=== PATIENT | male | born 1950 | race Caucasian/White ===

== ENCOUNTER 2017-10-11 22:59 | Inpatient (IN) ==
[2017-10-11] MEDS ORDERED: 0.9 % Sodium Chloride 1,000 ML IVC ONE (23:51)
[2017-10-12 00:04] LABS: Basophils # 0.1 K/mcL (0.0-0.2); Basophils % 0.2 %; Eosinophils # 0.3 K/mcL (0.0-0.6); Eosinophils % 1.5 %; Hemoglobin 12.9 g/dL (12.9-16.9); Immature Granulocytes % 0.6 % (0-4); Lymphocytes # 4.5 K/mcL (0.6-4.6); Lymphocytes % 20.7 %; Mean Corpuscular HGB Conc 33.9 g/dL (31.6-35.5); Mean Corpuscular Hemoglobin 29.9 pg (28.0-33.3); Mean Corpuscular Volume 88.2 fL (83.0-100.0); Mean Platelet Volume 9.3 fL (9.4-12.4); Monocytes # 1.5 K/mcL (0.0-1.3); Monocytes % 6.7 %; Neutrophils # 15.2 K/mcL (1.6-8.9); Platelet Count 373 K/mcL (140-400); Red Blood Count 4.31 M/mcL (4.19-5.50); Red Cell Distribution Width 14.6 % (11.5-14.5); Segmented Neutrophils % 70.3 %
[2017-10-12 00:15] LABS: BUN/Creatinine Ratio 23 (6-26); Blood Urea Nitrogen 34 mg/dL (8-23); Calcium 9.7 mg/dL (8.6-10.3); Carbon Dioxide 12 mEq/L (23-29); Chloride 106 mEq/L (98-107); Glucose 188 mg/dL (70-105); Osmolality,Calculated 287 (280-300); Potassium 4.5 mEq/L (3.5-5.1); Sodium 132 mEq/L (136-145); Troponin I < 0.03 ng/mL (< 0.04); eGFR For Non-African Americans 47 (> 60)
[2017-10-12] MEDS ORDERED: Ondansetron 4 MG/2 ML VIAL IVP ONE (00:30)
--- NOTE | 2017-10-12 00:51 | Emergency Department Note ---
Disposition Clinical Impression: Altered mental state Qualifiers: Altered mental status type: disorientation Qualified Code(s): R41.0 - Disorientation, unspecified Disposition: Admitted As Inpatient Condition: Good General Adult HPI - General Chief complaint: ED Syncope Stated complaint: syncope Time Seen by Provider: 10/11/17 23:18 Source: patient, family Mode of arrival: ambulatory Limitations: no limitations Nursing Notes Reviewed: Yes Vital Signs Reviewed: Yes - History of Present Illness HPI Narrative: Patient is a 67-year-old male presenting with AMS. Patient has past medical history significant for prostate cancer, diabetes, hypertension and hyperlipidemia. The patient states that just prior to arrival he had an episode that lasted about 30 seconds where he had altered mental status. It was witnessed by family, per family patient was sitting in his chair when all of a sudden he had an episode where he was unresponsive, remained posture while sitting in a chair, eyes remained open, noted that patient began to snore. Patient denies any recollection of the event, does note confusion following, per family he was confused for about 30 minutes, remained able to answer questions however did not seem "himself". Just prior to the episode patient states that he began to be lightheaded, dizzy with nausea. Patient denies any history of syncope, chest pain, shortness of breath, diaphoresis, seizure. For the past week, patient has been diagnosed with hyperkalemia and had been started on Kayexalate medication, states had blood work this am which showed K at 5.9, took double dose of kayexalate. Patient states that just prior to the episode he had taken this. Patient denies any vomiting, blood in stool or urine. He denies any pain during this event or currently. Per family, patient states that he is back to baseline at this point in time. Patient denies history of stroke, TIA or being on anticoagulation. Pain Scale: 0 - Related Data Allergies Allergy/AdvReac Type Severity Reaction Status Date / Time No Known Allergies Allergy Verified 10/11/17 23:12 All systems ED: reviewed and negative except as stated. Review of Systems: As Per HPI Constitutional: Denies: fever, chills ENT ED: Denies: congestion Cardiovascular: Denies: chest pain, palpitations, dyspnea on exertion, syncope Respiratory: Denies: cough, dyspnea, wheezes, hemoptysis Gastrointestinal: Reports: nausea. Denies: abdominal pain, vomiting, diarrhea Genitourinary: Denies: urgency, dysuria Musculoskeletal: Denies: back pain Integumentary: Denies: rash Neurological: Reports: confusion. Denies: headache, weakness, numbness, paresthesias Psychiatric: Denies: anxiety Endocrine: Denies: fatigue Hematological/Lymphatic: Denies: easy bleeding, easy bruising Past Medical History - Past Medical History Attestation: Yes The following information was validated with the patient. Source: patient, obtained from family Medical history: Reports: diabetes, hyperlipidemia, hypertension - Social History Smoking Status: Never smoker Smokeless Tobacco Status: No Alcohol use: Reports: rarely Drug use: Reports: none Physical Exam - General Limitations: no limitations General appearance: alert, in no apparent distress - Head Head exam: atraumatic, normocephalic - Eye Eye exam: Present: normal appearance, PERRL, EOMI. Absent: nystagmus, miosis, mydriasis - ENT ENT exam: normal exam, normal oropharynx, mucous membranes moist - Neck Neck exam: Present: normal inspection - Chest Chest inspection: Present: normal inspection, symmetric chest wall rise - Respiratory Respiratory exam: Present: normal lung sounds bilaterally. Absent: respiratory distress, wheezes - Cardiovascular Cardiovascular exam: Present: regular rate, normal rhythm - Abdominal Exam Abdominal exam: Present: soft, Non-Tender, normal bowel sounds. Absent: tenderness, distention, guarding, rebound, rigidity - Extremities Exam Extremities exam: Present: normal inspection, normal capillary refill. Absent: tenderness, pedal edema, calf tenderness - Expanded Lower Extremity Exam Neurovascular/Tendon exam: Present: normal capillary refill. Absent: pulse deficit, motor deficit, sensory deficit - Neurological Exam Neurological exam: Present: alert, oriented X3, CN II-XII intact - Expanded Neurological Exam Patient oriented to: Present: person, place, time Speech: Present: fluid speech Cranial nerves: EOM function (II, III, IV, ): Normal, facial sensation (V): Normal, facial palsy (VII): Normal, gag reflex (IX): Normal, spinal accessory function (XI): Normal, tongue deviation (XII): Normal Cerebellar function: heel to mathur: Normal Motor strength - LUE: 5/5 Motor strength - RUE: 5/5 Motor strength - LLE: 5/5 Motor strength - RLE: 5/5 Upper motor neuron exam: pronator drift: Absent bilaterally Sensory exam upper extremity: light touch: Normal Sensory exam lower extremity: light touch: Normal Coma Scale Eye Opening: Spontaneous Coma Scale Motor Response: Obeys Commands Coma Scale Verbal Response: Oriented Coma Scale Total: 15 - Psychiatric Psychiatric exam: Present: normal affect, normal mood - Skin Skin exam: Present: warm, dry Course Course Narrative: We will order syncope rule out evaluation with CT head, we will give fluids and Zofran for nausea - Consultations Consultation #1: Spoke with neurology, Dr. Macias, who states that he will consult patient in the morning Time: 01:56 Vital Signs Temperature 98.6 F 10/11/17 23:05 Pulse Rate 72 10/11/17 23:05 Respiratory Rate 18 10/11/17 23:05 Blood Pressure 107/75 10/11/17 23:05 O2 Sat by Pulse Oximetry 95 10/11/17 23:05 Temperature 98.6 F 10/11/17 23:05 Pulse Rate 77 10/12/17 01:12 Respiratory Rate 16 10/12/17 03:10 Blood Pressure 120/70 10/12/17 03:10 O2 Sat by Pulse Oximetry 98 10/12/17 01:12 Oxygen Delivery Oxygen Delivery Room Air Medical Decision Making - MDM Narrative Medical decision making narrative: Patient is a 67-year-old male presenting with altered mental status. Evaluation in the emergency department revealed leukocytosis at 21.6 with elevated neutrophil at 15.1, creatinine is elevated at 1.50. Carbon dioxide low at 12, potassium stable at 4.5, CT of the head is unremarkable for acute intracranial process and chest x-ray is negative for acute cardiac or pulmonary process. EKG is negative for acute ischemic changes, troponin is within normal limits. Patient has remained stable while in the emergency department, normal vital signs. Upon reevaluation, patient states that he feels back to baseline. At this point in time, patient presentation suggestive of seizure activity versus syncopal episode, would like to consult neurology for further diagnostics as well as further recommendations, would like neurology to see patient in the morning for further evaluation. Had an in-depth conversation with the patient regarding recommendation for admission for observation of possible seizure activity. Patient is in agreement and at this time will call hospitalist for further admission and evaluation. Spoke with neurology and states that they will consult the patient tomorrow morning. Discussed the patient with hospitalist, at 225 and they accept patient at this point in time. - Medical Records Medical records reviewed: Yes I reviewed the patient's medical records. - Lab Data Lab results reviewed: Yes I reviewed the patient's lab results. Result diagrams: 10/11/17 23:17 10/11/17 23:17 Lab Results 10/11/17 10/11/17 Range/Units 23:17 23:17 WBC 21.6 H (4.3-11.1) K/mcL RBC 4.31 (4.19-5.50) M/mcL Hgb 12.9 (12.9-16.9) g/dL Hct 38.0 (37.5-50.1) % MCV 88.2 (83.0-100.0) fL MCH 29.9 (28.0-33.3) pg MCHC 33.9 (31.6-35.5) g/dL RDW 14.6 H (11.5-14.5) % Plt Count 373 (140-400) K/mcL MPV 9.3 L (9.4-12.4) fL Immature Gran % 0.6 (0-4) % Seg Neutrophils % 70.3 % Lymphocytes % 20.7 % Monocytes % 6.7 % Eosinophils % 1.5 % Basophils % 0.2 % Neutrophils # 15.2 H (1.6-8.9) K/mcL Lymphocytes # 4.5 (0.6-4.6) K/mcL Monocytes # 1.5 H (0.0-1.3) K/mcL Eosinophils # 0.3 (0.0-0.6) K/mcL Basophils # 0.1 (0.0-0.2) K/mcL Sodium 132 L (136-145) mEq/L Potassium 4.5 (3.5-5.1) mEq/L Chloride 106 (98-107) mEq/L Carbon Dioxide 12 L (23-29) mEq/L BUN 34 H (8-23) mg/dL Creatinine 1.50 H (0.70-1.30) mg/dL Est GFR ( Amer) 57 L (> 60) Est GFR (Non-Af Amer) 47 L (> 60) BUN/Creatinine Ratio 23 (6-26) Glucose 188 H (70-105) mg/dL Calculated Osmolality 287 (280-300) Calcium 9.7 (8.6-10.3) mg/dL Troponin I < 0.03 (< 0.04) ng/mL - Radiology Data Radiology results reviewed: Yes I reviewed the patient's radiology results. Chest X-Ray 10/12/17 00:01 IMPRESSION: Negative portable chest. D/ / Joao Albright MD / Joao Albright MD Interpreting Provider: Joao Albright MD Head CT 10/12/17 00:08 IMPRESSION: No acute intracranial abnormality. D/ / Joao Albright MD / Joao Albright MD Interpreting Provider: Joao Albright MD - EKG Data EKG #1 EKG attestation: Yes I reviewed and interpreted this EKG. EKG results narrative: EKG performed at 2309, ventricular rate of 69, regular rhythm, normal axis, no evidence of hypertrophy, [place] interval 155, QRS at 85, QT at 380, QTC 408, no evidence of ST or T-wave changes, no acute ischemic changes. When compared to previous EKG there are: previous EKG unavailable S.B.A.RChristine - S.[email or web address].Edvin Situation: Demographics, MOA Background: Presenting Complaint, Relevant PMH, Meds, & Allergies Assessment: Vital Signs, Course and respsone to treatment, Exam Concerns, Patient/Family Expectation, Pertinant Lab Results, Outstanding Labs Recommendation: Barrier(s) to disposition, Recommendation based on pending studies, treatments, or consults S.B.A.RChristine Report Given to: hospitatlist Roberto Repor Time: 02:29 (accepted)
[2017-10-12] MEDS ORDERED: Naloxone 0.4 MG/ML INJ IVP PRN ×2 (03:00→05:26)
[2017-10-12] MEDS ORDERED: *HR* LORazepam 2 MG/ML VIAL IVP PRN (03:03)
[2017-10-12] MEDS ORDERED: D5% in Water 1,000 ML IVC PRN (03:04)
[2017-10-12] MEDS ORDERED: Dextrose Gel 15 GM/37.5 ML TUBE PO PRN ×2 (03:04)
[2017-10-12] MEDS ORDERED: *HR* Dextrose 50 % in Water (Syg) 50 ML SYRINGE IVP PRN (03:04)
--- NOTE | 2017-10-12 03:09 | Internal Med History&Physical ---
Addendum entered and electronically signed by Sergio Adler DO 03:19: Additional A/P hx of CKD3: reports baseline GFR is 47. BMP shows scr of 1.5 with GFR 47. Not SALMA Leukocytosis: denies fever, chills, dysuria, cough. cxr negative. will obtain U/ A. May be 2nd to stress reaction from his seizure like episode. Anion gap acidosis: patient has a gap of 14. Bicarb is 12. Glucose 188. will order lactic acid. repeat BMP in 6 hours if not resolved may order additional testing. Original Note: <Sergio Adler - Last Filed: 10/12/17 03:06> Date of Encounter: 10/12/17 Time of Encounter: 03:06 Internal Medicine - H&P: HPI Chief complaint: Altered mental status Admitted From: Home Plans for Post Hospital Care: Home History of present illness: Mr. Desai is a 67 year old male presents with chief complaint of altered mental status. Patient is visiting from [place] and receives his medical care there. Patient was eating dinner at the dining table at 10 PM when he had loss of consciousness. According to patient family saw him sitting in the chair staring for at least 30 seconds. Afterwards patient reports he heard some noises and likely regain consciousness. He does not remember any of this. He reports he was dizzy and lightheaded afterwards. He reports he has never had this before. Before the episode he had taken a Kayexalate which was prescribed to him due to hyperkalemia. He denied headache, blurry vision, changes in hearing, difficulty swallowing, tongue biting, loss of bowels, bladder function , numbness, tingling, weakness on one side, slurred speech, palpitations, chest pain, shortness of breath, cough, fever, chills, abdominal pain, nausea, vomiting, diarrhea, lower extremity edema. Patient was recently diagnosed with prostate cancer and underwent bone scan last week as well as CT of the chest and abdomen for staging. In the ER CT head was negative. Chest x-ray was negative. EKG was sinus rhythm with no ST-T wave changes. He denies history of head trauma, stroke. Past Med Surg Social Fam HX - Past Medical History Medical history: diabetes, hyperlipidemia, hypertension Additional medical history: Prostate cancer, CK D3 - Past Surgical History Surgical History: no surgical history - Social History Smoking Status: Never smoker Smokeless Tobacco Status: No Alcohol use: rarely Drug use: none Occupational status: retired Current living situation: Home Activity Level: Independent ambulation Recent Out of Country Travel Within the Last 8 Weeks: No Exposure or Possible Exposure to Illness During Travel: No - Family History Father Hx Family Cancer: Yes (Prostate cancer) Internal Medicine - H&P: Meds 3 Allergy/AdvReac Type Severity Reaction Status Date / Time No Known Allergies Allergy Verified 10/11/17 23:12 All Systems PM: A 10-system review of systems was performed and is negative for pertinent findings except as documented above in the HPI. Review of systems: As per history of present illness - Constitutional Vitals: Temp Pulse Resp BP Pulse Ox 98.6 F 77 18 123/71 98 10/11/17 23:05 10/12/17 01:12 10/12/17 01:12 10/12/17 01:12 10/12/17 01:12 Exam: General: Pleasant, anxious male HEENT: Head atraumatic, normocephalic, EOMI, PERRL, neck nontender to palpation , absent lymphadenopathy, Moist Mucous Membranes, no evidence of tongue biting Heart: Regular rate and rhythm with no murmur Lungs: Clear to auscultation bilaterally Abdomen: Soft nontender, nondistended positive bowel sounds Skin: warm and dry, absent rash Extremities: Absent pedal edema, Neuro: Cranial nerves II through XII intact, UE and LE sensation equal bilaterally, UE and LEstrength 5/5, alert oriented 3, Heel to mathur intact, finger to nose intact, Gait intact, Vascular: Pedal and radial pulses 2 out of 4 Internal Med - H&P Results - Labs CBC & Chem 7: 10/11/17 23:17 10/11/17 23:17 - Assessment and plan (1) Altered mental state Current Visit: Yes Status: Acute Assessment and plan: 66-year-old male presented with chief complaint of altered mental status Patient was eating dinner when he had 30 seconds staring spell which she does not remember and thereafter recovered his consciousness quickly CT head was negative Since the episode he denies confusion, lightheadedness, dizziness, additional syncopal episodes. He denies history of seizure, trauma. Neurology was consulted by ED and will see patient tomorrow Ordered EEG, prolactin Patient was recently diagnosed with prostate cancer and is undergoing staging. May consider MRI of the brain with possible metastasis. Qualifiers: Altered mental status type: disorientation Qualified Code(s): R41.0 - Disorientation, unspecified (2) History of hyperlipidemia Current Visit: Yes Status: Chronic Assessment and plan: Patient has history of hyperlipidemia Continue home medications. (3) Prostate cancer Current Visit: Yes Status: Chronic Assessment and plan: Stated above Patient recently diagnosed with prostate cancer He is very nervous as he does not know the results of his bone scan, CT chest and abdomen/pelvis (4) Hx of essential hypertension Current Visit: Yes Status: Acute Assessment and plan: Controlled Continue home medications. (5) DVT prophylaxis Current Visit: Yes Status: Acute Assessment and plan: ambulate tid - Time Spent With Patient Total time spent is greater than 50% in coordination of care (as documented) at patient's floor/unit and/or counseling patient: <JesustyreeArpita piña - Last Filed: 10/12/17 07:46> Date of Encounter: 10/12/17 Internal Medicine - H&P: HPI History of present illness: Mr. Desai is a 67 year old male Past Med Surg Social Fam HX - Family History Father Hx Family Cardiac Disorders: Yes (HTN) Hx Family Respiratory Disorders: No Hx Family Cancer: Yes (Prostate cancer) Hx Family GI Disorders: No Hx Family Genitourinary Disorders: No Hx Family Endocrine Disorder: Yes (DM) Hx Family Musculoskeletal Disorders: No Hx Family Neuromuscular Disorders: No Hx Family Neurologic Disorders: No Hx Family HEENT Disorders: No Hx Family Autoimmune Disorders: No Hx Family Reproductive Disorders: No Hx Family Psychosocial Disorders: No Hx Family Medical Disorders: No Mother Hx Family Cardiac Disorders: Yes (HTN) Hx Family Respiratory Disorders: No Hx Family Cancer: No Hx Family GI Disorders: No Hx Family Genitourinary Disorders: No Hx Family Endocrine Disorder: Yes (DM) Hx Family Musculoskeletal Disorders: No Hx Family Neuromuscular Disorders: No Hx Family Neurologic Disorders: No Hx Family HEENT Disorders: No Hx Family Autoimmune Disorders: No Hx Family Reproductive Disorders: No Hx Family Psychosocial Disorders: No Hx Family Medical Disorders: No All Systems PM: A 10-system review of systems was performed and is negative for pertinent findings except as documented above in the HPI. - Constitutional Vitals: Temp Pulse Resp BP Pulse Ox 98.4 F 86 16 124/73 96 10/12/17 07:33 10/12/17 07:33 10/12/17 07:33 10/12/17 07:33 10/12/17 07:33 Internal Med - H&P Results - Labs CBC & Chem 7: 10/11/17 23:17 10/11/17 23:17 - Assessment and plan (1) Altered mental state Current Visit: Yes Status: Acute Qualifiers: Altered mental status type: disorientation Qualified Code(s): R41.0 - Disorientation, unspecified (2) History of hyperlipidemia Current Visit: Yes Status: Chronic (3) Prostate cancer Current Visit: Yes Status: Chronic (4) Hx of essential hypertension Current Visit: Yes Status: Acute (5) DVT prophylaxis Current Visit: Yes Status: Acute - Time Spent With Patient Total time spent is greater than 50% in coordination of care (as documented) at patient's floor/unit and/or counseling patient: - Attending Attestation Patient seen and examined. Chart reviewed. Agree with assessment and plan. Syncope versus seizure episode. History more consistent with a vasovagal syncope however given lactic acid and patient's history of a seven-hour car ride in the setting of possible prostate cancer, we will obtain d-dimer to rule out PE. Well's score of 1. Consider cardiology and neurology consult.
[2017-10-12] MEDS: *HR* Heparin 5,000 UNIT/ML VIAL SQ SCH ×3 (06:05→23:34)
--- NOTE | 2017-10-12 06:43 | Emergency Department Note ---
Disposition Clinical Impression: Altered mental state Qualifiers: Altered mental status type: disorientation Qualified Code(s): R41.0 - Disorientation, unspecified Disposition: Admitted As Inpatient Condition: Good General Adult HPI - General Chief complaint: ED Syncope Stated complaint: syncope Time Seen by Provider: 10/11/17 23:18 Source: patient, family Mode of arrival: ambulatory Limitations: no limitations Nursing Notes Reviewed: Yes Vital Signs Reviewed: Yes - History of Present Illness Pain Scale: 0 - Related Data Allergies Allergy/AdvReac Type Severity Reaction Status Date / Time No Known Allergies Allergy Verified 10/11/17 23:12 Constitutional: Denies: fever, chills ENT ED: Denies: congestion Cardiovascular: Denies: chest pain, palpitations, dyspnea on exertion, syncope Respiratory: Denies: cough, dyspnea, wheezes, hemoptysis Gastrointestinal: Reports: nausea. Denies: abdominal pain, vomiting, diarrhea Genitourinary: Denies: urgency, dysuria Musculoskeletal: Denies: back pain Integumentary: Denies: rash Neurological: Reports: confusion. Denies: headache, weakness, numbness, paresthesias Psychiatric: Denies: anxiety Endocrine: Denies: fatigue Hematological/Lymphatic: Denies: easy bleeding, easy bruising Past Medical History - Past Medical History Medical history: Reports: diabetes, hyperlipidemia, hypertension Surgical history: Reports: no surgical history - Social History Smoking Status: Never smoker Smokeless Tobacco Status: No Alcohol use: Reports: rarely Drug use: Reports: none Physical Exam - General Limitations: no limitations General appearance: alert, in no apparent distress Course Vital Signs Temperature 98.6 F 10/11/17 23:05 Pulse Rate 72 10/11/17 23:05 Respiratory Rate 18 10/11/17 23:05 Blood Pressure 107/75 10/11/17 23:05 O2 Sat by Pulse Oximetry 95 10/11/17 23:05 Temperature 98.6 F 10/11/17 23:05 Pulse Rate 77 10/12/17 01:12 Respiratory Rate 16 10/12/17 03:10 Blood Pressure 120/70 10/12/17 03:10 O2 Sat by Pulse Oximetry 98 10/12/17 01:12 Oxygen Delivery Oxygen Delivery Room Air Medical Decision Making - Lab Data Lab results reviewed: Yes I reviewed the patient's lab results. Result diagrams: 10/11/17 23:17 10/11/17 23:17 Lab Results 10/11/17 10/11/17 Range/Units 23:17 23:17 WBC 21.6 H (4.3-11.1) K/mcL RBC 4.31 (4.19-5.50) M/mcL Hgb 12.9 (12.9-16.9) g/dL Hct 38.0 (37.5-50.1) % MCV 88.2 (83.0-100.0) fL MCH 29.9 (28.0-33.3) pg MCHC 33.9 (31.6-35.5) g/dL RDW 14.6 H (11.5-14.5) % Plt Count 373 (140-400) K/mcL MPV 9.3 L (9.4-12.4) fL Immature Gran % 0.6 (0-4) % Seg Neutrophils % 70.3 % Lymphocytes % 20.7 % Monocytes % 6.7 % Eosinophils % 1.5 % Basophils % 0.2 % Neutrophils # 15.2 H (1.6-8.9) K/mcL Lymphocytes # 4.5 (0.6-4.6) K/mcL Monocytes # 1.5 H (0.0-1.3) K/mcL Eosinophils # 0.3 (0.0-0.6) K/mcL Basophils # 0.1 (0.0-0.2) K/mcL Sodium 132 L (136-145) mEq/L Potassium 4.5 (3.5-5.1) mEq/L Chloride 106 (98-107) mEq/L Carbon Dioxide 12 L (23-29) mEq/L BUN 34 H (8-23) mg/dL Creatinine 1.50 H (0.70-1.30) mg/dL Est GFR ( Amer) 57 L (> 60) Est GFR (Non-Af Amer) 47 L (> 60) BUN/Creatinine Ratio 23 (6-26) Glucose 188 H (70-105) mg/dL Calculated Osmolality 287 (280-300) Calcium 9.7 (8.6-10.3) mg/dL Troponin I < 0.03 (< 0.04) ng/mL - Radiology Data Radiology results reviewed: Yes I reviewed the patient's radiology results. Chest X-Ray 10/12/17 00:01 IMPRESSION: Negative portable chest. D/ / Joao Albright MD / Joao Albrihgt MD Interpreting Provider: Joao Albright MD Head CT 10/12/17 00:08 IMPRESSION: No acute intracranial abnormality. D/ / Joao Albright MD / Joao Albright MD Interpreting Provider: Joao Albright MD Attestation Statement - Attestation Attestation: I, Kg Pavon MD, personally evaluated this patient and discussed their management with the resident physician. I reviewed the resident's note and agree with the documented findings, medical decision making, and plan of care. 67-year-old male presents to the emergency department with a complaint of having an episode of unresponsiveness shortly prior to arrival. Patient had just eaten and was sitting at the table when family reports that he suddenly slumped his head forward and developed some snoring respirations. They report that his eyes were opening during this episode that he would not respond to them at all. He became very pale. No cyanosis. No diaphoresis. No prior history of similar episodes. This episode lasted about 30 seconds and then patient began to wake up. Initially he was confused and disoriented and slow to respond. This gradually improved over several minutes. Here in the emergency Department patient is back to his baseline. He states all he remembers is that he became dizzy and lightheaded while sitting at the table and then he remembers waking up. No chest pain or palpitations with the episode. Patient has a history of chronic hyperkalemia and states his potassium usually runs 5.4-5.8. Earlier this week it was up about 6 and he was treated with Kayexalate. He followed up yesterday morning and it was still 5.970 was given Kayexalate to take for 3 days. He had taken the Kayexalate this shortly prior to this episode. On examination patient is a well-developed well-nourished well-appearing male in no acute distress. He is alert and oriented 3. There is no cyanosis or diaphoresis. No gross focal neurological deficits. Breath sounds clear and equal bilaterally. Heart regular rate and rhythm. Abdomen soft and nontender with normal bowel sounds. Labs, imaging, and EKG reviewed. The neurologist orthodontic laboratory technician, Dr. Mcdaniel, was consulted and will consult on the patient in the hospital in the morning. The hospitalist, Dr. Acosta, was consulted and accepted admission of the patient.
[2017-10-12] MEDS ORDERED: Insulin LISPRO 300 UNITS/3 ML VIAL SQ SCH ×2 (07:30→21:00)
[2017-10-12] MEDS ORDERED: *HR* Metformin 500 MG TABLET PO SCH (08:00)
[2017-10-12 08:01] LABS: Bilirubin,Urine Negative (Negative); Blood,Urine Trace (Negative); Clarity,Urine Clear (Clear); Color,Urine Yellow (Yellow); Glucose,Urine (UA) Normal (Normal); Ketones,Urine Negative (Negative); Leukocyte Esterase,Urine Negative (Negative); Nitrite,Urine Negative (Negative); PH,Urine 5.5 pH Units (5.0-8.0); Protein,Urine Negative (Neg-Trace); Specific Gravity,Urine 1.012 (1.010-1.025); Urobilinogen,Urine Normal (Normal)
[2017-10-12 08:04] LABS: Bacteria,Urine None Seen per hpf (None-Few); Hyaline Casts,Urine None Seen per lpf (None-Few); Squamous Epithelial Cell,Urine None Seen per lpf (None-Few); WBC,Urine 0-3 per hpf (0-3)
--- NOTE | 2017-10-12 08:44 | Internal Med Progress Note ---
Hospitalist Progress Note - Encounter Date of Encounter: 10/12/17 - Exam Vitals: Temp Pulse Resp BP Pulse Ox 98.4 F 86 16 124/73 96 10/12/17 07:33 10/12/17 07:33 10/12/17 07:33 10/12/17 07:33 10/12/17 07:33 - Time Spent with Patient Total time spent is greater than 50% in coordination of care (as documented) at patient's floor/unit and/or counseling patient: Internal Medicine: Result - Labs CBC & Chem 7: 10/11/17 23:17 10/11/17 23:17 Labs: Urine 10/12/17 Range/Units 06:35 Urine Color Yellow (Yellow) Urine Clarity Clear (Clear) Urine pH 5.5 (5.0-8.0) pH Units Ur Specific [place] 1.012 (1.010-1.025) Urine Protein Negative (Neg-Trace) mg/dL Urine Glucose (UA) Normal (Normal) mg/dL - ABG Interpretation ABG results: PT/INR, D-dimer D-Dimer 555 ng/mLFEU (0-500) H 10/12/17 05:19 Consult Discharge Plan - Plan Referrals: NONE,PCP [Primary Care Provider] -
[2017-10-12 09:45] LABS: Amphetamine Screen,Urine Negative ng/mL (Cutoff=1000); Barbiturate Screen,Urine Negative ng/mL (Cutoff=200); Benzodiazepines Screen,Urine Negative ng/mL (Cutoff=200); Cannabinoid Screen,Urine Negative ng/mL (Cutoff = 50); Cocaine Screen,Urine Negative ng/mL (Cutoff= 300); Opiate Screen,Urine Negative ng/mL (Cutoff=300); Phencyclidine Screen,Urine Negative ng/mL (Cutoff=25)
--- NOTE | 2017-10-12 11:26 | Cardiology Consult Note ---
Date of Encounter: 10/12/17 Time of Encounter: 09:40 Assessment and Plan (1) Syncope Current Visit: Yes Status: Acute Unclear etiology. Patient reports syncopal episode yesterday evening while sitting at dinner table. Family described as "staring off, snoring" Had recently taken kayexalate for hyperkalemia--K stable upon presentation. Recent dx of prostate CA. Head CT negative for acute findings. Consider Neurology consult. Telemetry reviewed, no concerning findings noted. No AVB, arrhythmia. Avg HR=84 SR. Check orthostatics. Echocardiogram, carotid pending. If no significant abnormalities noted, Cardiology will sign-off. Qualifiers: Syncope type: unspecified Qualified Code(s): R55 - Syncope and collapse Discussion w patient/family: The assessment and plan as outlined above was discussed with the patient and/or family members who expressed understanding and agreement. All questions were answered. Thank you for involving us in the care of your patient. Please call with any questions. The patient will be discussed and reviewed with Dr. Parra; changes to be made accordingly. History of Present Illness Consult date: 10/12/17 Requesting physician: Sergio Adler Consult reason: Syncope Chief complaint: Syncope History of present illness: Mr. Desai is a 67 year old male with PMHx significant of HTN, HLD, DMII, CKD-3 , and recent dx of prostate cancer who presented to the ED with complaints of syncope episode yesterday evening while sitting at the dinner table with family. Reports he resides in [place] and traveled here yesterday to visit his son; while eating a late dinner, he suddenly felt dizzy. He reports he then passed out. Family described patient as "staring off and snoring." Event lasted nearly 30 seconds. No prior history. Reports was in normal state of health up until event. He reports shortly before episode he had taken Kayexalate for hyperkalemia under direction of physician. Reports potassium has been high on and off this week, had taken 1 dose of kayexalate earlier this week. Denies chest pain/discomfort. No prior CV testing or work-up. Denies hx of CV disease. Past Med Surg Social Fam HX - Past Medical History Attestation: Yes The following information was validated with the patient. Source: patient Medical history: diabetes, hyperlipidemia, hypertension, renal disease Additional medical history: Prostate cancer, CK D3 - Past Surgical History Surgical History: no surgical history - Social History Smoking Status: Never smoker Smokeless Tobacco Status: No Alcohol use: rarely Drug use: none - Family History Father Hx Family Cardiac Disorders: Yes (HTN) Hx Family Respiratory Disorders: No Hx Family Cancer: Yes (Prostate cancer) Hx Family GI Disorders: No Hx Family Genitourinary Disorders: No Hx Family Endocrine Disorder: Yes (DM) Hx Family Musculoskeletal Disorders: No Hx Family Neuromuscular Disorders: No Hx Family Neurologic Disorders: No Hx Family HEENT Disorders: No Hx Family Autoimmune Disorders: No Hx Family Reproductive Disorders: No Hx Family Psychosocial Disorders: No Hx Family Medical Disorders: No Mother Hx Family Cardiac Disorders: Yes (HTN) Hx Family Respiratory Disorders: No Hx Family Cancer: No Hx Family GI Disorders: No Hx Family Genitourinary Disorders: No Hx Family Endocrine Disorder: Yes (DM) Hx Family Musculoskeletal Disorders: No Hx Family Neuromuscular Disorders: No Hx Family Neurologic Disorders: No Hx Family HEENT Disorders: No Hx Family Autoimmune Disorders: No Hx Family Reproductive Disorders: No Hx Family Psychosocial Disorders: No Hx Family Medical Disorders: No Medications and Allergies Atorvastatin [Lipitor] 40 mg PO HS 10/12/17 [History] Lisinopril [Zestril] 40 mg PO DAILY 10/12/17 [History] Metformin HCl [Glucophage] 1,000 mg PO BIDWM 10/12/17 [History] Naproxen [Naproxen] 500 mg PO BID PRN 10/12/17 [History] 3 Allergy/AdvReac Type Severity Reaction Status Date / Time No Known Allergies Allergy Verified 10/12/17 11:33 All Systems Review: The remainder of the systems were reviewed and are negative - Cardiovascular Cardiovascular: as per HPI Physical Examination Vital Signs, Last 4 Hours Temp Pulse Resp BP Pulse Ox 10/12/17 07:33 98.4 F 86 16 124/73 96 General: Conversant, No Apparent Distress HEENT: Atraumatic, Normocephaly, Mucus Membranes Moist Neck: No JVD, Normal carotid pulses Cardiac: Reg Rate and Rhythm, Normal S1 and S2, No Murmur Lungs: Normal Breath Sounds, No Wheeze, Rales, Rhonchi Neuro: Alert and responsive, No focal deficits noted Abdomen: Soft, Non-Tender Skin: No rashes noted on visualized skin Musculoskeletal: No Chest Wall Tenderness Extremities: No Clubbing, No Cyanosis, No Edema, Normal Pulses Results 10/11/17 23:17 10/11/17 23:17 Lab Results 10/12/17 05:19 D-Dimer 555 H Active Medications Dextrose/Water (Dextrose 50% (Syg)) 25 ml IVP AD PRN PRN Reason: Hypoglycemia Stop: 04/13/18 03:05 Glucagon (Glucagen) 1 mg IM ONCE PRN PRN Reason: Hypoglycemia Stop: 04/13/18 03:05 Glucose (Gluctose) 15 gm PO ONCE PRN PRN Reason: Hypoglycemia Stop: 04/13/18 03:05 Glucose (Gluctose) 30 gm PO ONCE PRN PRN Reason: Hypoglycemia Stop: 04/13/18 03:05 Heparin Sodium (Porcine) (Heparin) 5,000 unit SQ Q8HCO LUDWIN Stop: 04/13/18 06:01 Last Admin: 10/12/17 06:05 Dose: 5,000 unit Dextrose (Dextrose 5%) 1,000 mls @ 100 mls/hr IVC .Q10H PRN PRN Reason: HYPOGLYCEMIA Stop: 04/13/18 03:05 Lorazepam (Ativan) 1 mg IVP Q2HR PRN PRN Reason: Seizure Activity Stop: 04/13/18 03:04 Naloxone HCl (Narcan) 0.4 mg IVP Q2MIN PRN PRN Reason: SEE COMMENTS Stop: 04/13/18 03:01 Naloxone HCl (Narcan) 0.4 mg IVP Q2MIN PRN PRN Reason: SEE COMMENTS Stop: 04/13/18 05:27 - Imaging and Cardiology Echo: pending Other Results: 12 hour tele: avg HR=84 SR. No events noted. - EKG Interpretation EKG results cardiology: personally reviewed Consult Discharge Plan - Plan Referrals: NONE,PCP [Primary Care Provider] -
--- NOTE | 2017-10-12 12:25 | Event Note ---
Date of Encounter: 10/12/17 Time of Encounter: 12:30 Seen and assessed. Admitted for syncopal episode by night team. CT head and chest xray negative. Echo pending. Cardiology and neurology recs pending. Noted to have increased anion gabp metabolic acidosis on admission with leukocytosis r /o Sepsis. Obtain blood cultures, start on zosyn. Follow up blood cultures, Repeat CBC and BMP . Also has elevated creatinine, no baseline to compare. R/o christi vs christi on ckd. Will start on IV fluids
[2017-10-12] MEDS: 0.9 % Sodium Chloride 1,000 ML IVC SCH ×2 (13:24→23:36)
[2017-10-12 14:24] LABS: Basophils % 0.2 %; Eosinophils # 0.2 K/mcL (0.0-0.6); Hematocrit 33.9 % (37.5-50.1); Immature Granulocytes % 0.4 % (0-4); Lymphocytes # 2.9 K/mcL (0.6-4.6); Lymphocytes % 18.3 %; Mean Corpuscular HGB Conc 32.4 g/dL (31.6-35.5); Mean Corpuscular Hemoglobin 28.9 pg (28.0-33.3); Mean Platelet Volume 9.3 fL (9.4-12.4); Monocytes # 1.3 K/mcL (0.0-1.3); Monocytes % 8.5 %; Neutrophils # 11.2 K/mcL (1.6-8.9); Platelet Count 313 K/mcL (140-400); Red Blood Count 3.81 M/mcL (4.19-5.50); Red Cell Distribution Width 14.9 % (11.5-14.5); Segmented Neutrophils % 71.6 %
--- NOTE | 2017-10-12 14:31 | Neurology - Consult Note ---
Date of Encounter: 10/12/17 Time of Encounter: 14:28 Assessment and Plan (1) Altered mental state Current Visit: Yes Status: Acute This patient who apparently had a very brief episode of less than 30 seconds when he was staring and not responsive, without any focal motor deficit on examination and no history of jerking shaking or any tonic-clonic activity. Patient is back to his baseline without much postictal state. At the moment all his workup including imaging studies of his head is been negative. No focal deficit on his neurological examination. He is also getting cardiac workup for the possibility of a syncopal episode. Other rare possibility that it could be complex partial seizures without any tonic-clonic activity but again seems to be very unusual in someone who is relatively healthy and without any obvious exacerbating factors. Though we could do an EEG but considering is back to his baseline I really doubt it is going to be helpful in fact I would recommend doing long-term ambulatory EEG as an outpatient to exclude the possibility of any other underlying seizure abnormality. Right now I did not see any other focal findings on examination suggest to continue on the current treatment. Suggest follow-up with neurology as an outpatient for long-term video EEG monitoring In the meantime suggestPatient was asked not to drive until seizure-free for 6 months. Patient was asked not to work in close proximity of machines with moving parts, not to swim unsupervised, not to take tub baths or showers with water accumulation, and not to work at high places. Until he is evaluated by neurology as an outpatient. Qualifiers: Altered mental status type: disorientation Qualified Code(s): R41.0 - Disorientation, unspecified (2) Prostate cancer Current Visit: Yes Status: Chronic History of Present Illness HPI: Mr. Desai is a 67 year old male who is visiting from [place] for [employer] game was eating dinner at the dining table at 10 PM when he had loss of consciousness. According to patient family saw him sitting in the chair staring for at least 30 seconds. Afterwards patient reports he heard some noises and likely regain consciousness. He does not remember any of this. He reports he was dizzy and lightheaded afterwards. Before the episode he had taken a Kayexalate which was prescribed to him due to hyperkalemia. He denied headache, blurry vision, changes in hearing, difficulty swallowing, tongue biting, loss of bowels, bladder function, numbness, tingling, weakness on one side, slurred speech, palpitations, chest pain, shortness of breath, cough, fever, chills, abdominal pain, nausea, vomiting, diarrhea. Patient was recently diagnosed with prostate cancer and underwent bone scan last week as well as CT of the chest and abdomen for staging. In the ER CT head was negative. Chest x-ray was negative. EKG was sinus rhythm with no ST- T wave changes. He denies history of head trauma, stroke or seizures. Past Med Surg Social Fam HX - Past Medical History Medical history: diabetes, hyperlipidemia, hypertension, renal disease Additional medical history: Prostate cancer, CK D3 - Past Surgical History Surgical History: no surgical history - Social History Smoking Status: Never smoker Smokeless Tobacco Status: No Alcohol use: rarely Drug use: none - Family History Father Hx Family Cardiac Disorders: Yes (HTN) Hx Family Respiratory Disorders: No Hx Family Cancer: Yes (Prostate cancer) Hx Family GI Disorders: No Hx Family Genitourinary Disorders: No Hx Family Endocrine Disorder: Yes (DM) Hx Family Musculoskeletal Disorders: No Hx Family Neuromuscular Disorders: No Hx Family Neurologic Disorders: No Hx Family HEENT Disorders: No Hx Family Autoimmune Disorders: No Hx Family Reproductive Disorders: No Hx Family Psychosocial Disorders: No Hx Family Medical Disorders: No Mother Hx Family Cardiac Disorders: Yes (HTN) Hx Family Respiratory Disorders: No Hx Family Cancer: No Hx Family GI Disorders: No Hx Family Genitourinary Disorders: No Hx Family Endocrine Disorder: Yes (DM) Hx Family Musculoskeletal Disorders: No Hx Family Neuromuscular Disorders: No Hx Family Neurologic Disorders: No Hx Family HEENT Disorders: No Hx Family Autoimmune Disorders: No Hx Family Reproductive Disorders: No Hx Family Psychosocial Disorders: No Hx Family Medical Disorders: No Medications and Allergies Atorvastatin [Lipitor] 40 mg PO HS 10/12/17 [History] Lisinopril [Zestril] 40 mg PO DAILY 10/12/17 [History] Metformin HCl [Glucophage] 1,000 mg PO BIDWM 10/12/17 [History] Naproxen [Naproxen] 500 mg PO BID PRN 10/12/17 [History] 3 Allergy/AdvReac Type Severity Reaction Status Date / Time No Known Allergies Allergy Verified 10/12/17 11:33 All Systems: The remainder of the systems were reviewed and are negative Physical Examination - Vital Signs Vital Signs: Initial Vital Signs Temp Pulse Resp BP Pulse Ox 98.6 F 72 18 107/75 95 10/11/17 23:05 10/11/17 23:05 10/11/17 23:05 10/11/17 23:05 10/11/17 23:05 - Constitutional General appearance: comfortable - Neurologic Detailed motor examination: full strength in all major muscle groups Motor examination - right side: 06/15: deltoids, biceps, triceps, wrist flexion, wrist extension, staff mechanical engineer, hip flexors, tibialis Anterior, quadriceps, toe extension (EHL), plantarflexion Motor examination - left side: 06/15: deltoids, biceps, triceps, wrist flexion, wrist extension, hip flexors, staff mechanical engineer, quadriceps, tibialis Anterior, toe extension (EHL), plantarflexion Mental Status Examination: awake, alert, oriented to person, oriented to place, oriented to time, follows commands appropriately, answers questions appropriately, no agnosia, no aphasia, no aproxia Cranial nerve examination: PERRL, EOMI, visual valero intact, corneal reflexes brisk symmetrically, sensory to face intact, mastication intact, no facial asymmetry is present, no dysarthria, hearing is intact symmetrically, soft palate elevates bilaterally upon phonation, gag reflex intact, flexes SCM and trapezius muscles symmetrically with full power, tongue protrudes midline, no atrophy or facial fasiculations present Cerebellar examination: no dysmetria, performs finger to nose and heel to mathur symmetrically without ataxia, no gait ataxia, no truncal ataxia, no difficulty with rapid alternating movements Results - Laboratory Findings CBC and BMP: 10/12/17 14:03 10/11/17 23:17 Abnormal lab findings: Abnormal lab results WBC 15.7 K/mcL (4.3-11.1) H 10/12/17 14:03 RBC 3.81 M/mcL (4.19-5.50) L 10/12/17 14:03 Hgb 11.0 g/dL (12.9-16.9) L D 10/12/17 14:03 Hct 33.9 % (37.5-50.1) L 10/12/17 14:03 RDW 14.9 % (11.5-14.5) H 10/12/17 14:03 MPV 9.3 fL (9.4-12.4) L 10/12/17 14:03 Neutrophils # 11.2 K/mcL (1.6-8.9) H 10/12/17 14:03 D-Dimer 555 ng/mLFEU (0-500) H 10/12/17 05:19 Sodium 132 mEq/L (136-145) L 10/11/17 23:17 Carbon Dioxide 12 mEq/L (23-29) L 10/11/17 23:17 BUN 34 mg/dL (8-23) H 10/11/17 23:17 Creatinine 1.50 mg/dL (0.70-1.30) H 10/11/17 23:17 Est GFR ( Amer) 57 (> 60) L 10/11/17 23:17 Est GFR (Non-Af Amer) 47 (> 60) L 10/11/17 23:17 Glucose 188 mg/dL (70-105) H 10/11/17 23:17 Urine Blood Trace (Negative) H 10/12/17 06:35 Urine Microscopic RBC 3-5 per hpf (0-3) H 10/12/17 06:35 Consult Discharge Plan - Plan Referrals: NONE,PCP [Primary Care Provider] -
[2017-10-12 14:41] LABS: BUN/Creatinine Ratio 24 (6-26); Blood Urea Nitrogen 31 mg/dL (8-23); Calcium 9.3 mg/dL (8.6-10.3); Carbon Dioxide 21 mEq/L (23-29); Chloride 109 mEq/L (98-107); Glucose 114 mg/dL (70-105); Osmolality,Calculated 291 (280-300); Potassium 4.5 mEq/L (3.5-5.1); Sodium 137 mEq/L (136-145); eGFR For Non-African Americans 55 (> 60)
[2017-10-12] MEDS: Piperacillin/Tazobactam 3.375 GM in 0.9 % Sodium Chloride Mini Bag 100 ML IVPB SCH ×2 (15:08→20:57)
[2017-10-12] MEDS: *HR* Metformin 500 MG TABLET PO SCH (17:21)
[2017-10-13] MEDS: Piperacillin/Tazobactam 3.375 GM in 0.9 % Sodium Chloride Mini Bag 100 ML IVPB SCH (04:27)
[2017-10-13] MEDS: *HR* Heparin 5,000 UNIT/ML VIAL SQ SCH (04:29)
[2017-10-13 06:43] LABS: Basophils % 0.3 %; Eosinophils # 0.4 K/mcL (0.0-0.6); Eosinophils % 2.8 %; Hematocrit 35.8 % (37.5-50.1); Hemoglobin 11.7 g/dL (12.9-16.9); Immature Granulocytes % 0.5 % (0-4); Lymphocytes # 3.5 K/mcL (0.6-4.6); Lymphocytes % 26.5 %; Mean Corpuscular HGB Conc 32.7 g/dL (31.6-35.5); Mean Corpuscular Hemoglobin 29.5 pg (28.0-33.3); Mean Corpuscular Volume 90.4 fL (83.0-100.0); Mean Platelet Volume 9.1 fL (9.4-12.4); Monocytes # 1.2 K/mcL (0.0-1.3); Monocytes % 9.1 %; Neutrophils # 7.9 K/mcL (1.6-8.9); Platelet Count 315 K/mcL (140-400); Red Blood Count 3.96 M/mcL (4.19-5.50); Red Cell Distribution Width 14.8 % (11.5-14.5); Segmented Neutrophils % 60.8 %
[2017-10-13 06:51] VITALS: BP 120/75
[2017-10-13] MEDS: *HR* Metformin 500 MG TABLET PO SCH (07:50)
[2017-10-13] MEDS ORDERED: Lisinopril 20 MG TABLET PO SCH (09:00)
[2017-10-13 09:21] LABS: BUN/Creatinine Ratio 19 (6-26); Blood Urea Nitrogen 26 mg/dL (8-23); Calcium 8.9 mg/dL (8.6-10.3); Carbon Dioxide 19 mEq/L (23-29); Chloride 111 mEq/L (98-107); Glucose 104 mg/dL (70-105); Magnesium 1.5 mg/dL (1.6-2.6); Osmolality,Calculated 295 (280-300); Phosphorous 3.6 mg/dL (2.7-4.5); Potassium 4.4 mEq/L (3.5-5.1); Sodium 140 mEq/L (136-145); eGFR For Non-African Americans 52 (> 60)
--- NOTE | 2017-10-13 09:28 | Discharge Summary ---
Orders not resulted at time of discharge: Pending orders 10/12/17 14:03 Culture,Blood [BC] Routine 10/14/17 04:00 Basic Metabolic Panel AM 0400 CBC [Complete Blood Count] [HEME] AM 0400 Magnesium AM 0400 Phosphorous AM 0400 10/15/17 04:00 Basic Metabolic Panel AM 0400 CBC [Complete Blood Count] [HEME] AM 0400 Magnesium AM 0400 Phosphorous AM 0400 10/16/17 04:00 Basic Metabolic Panel AM 0400 CBC [Complete Blood Count] [HEME] AM 0400 Magnesium AM 0400 Phosphorous AM 0400 10/17/17 04:00 Basic Metabolic Panel AM 0400 CBC [Complete Blood Count] [HEME] AM 0400 Magnesium AM 0400 Phosphorous AM 0400 10/18/17 04:00 Basic Metabolic Panel AM 0400 CBC [Complete Blood Count] [HEME] AM 0400 Magnesium AM 0400 Phosphorous AM 0400 Date of Encounter: 10/13/17 Time of Encounter: 09:30 - Discharge Diagnosis (1) Altered mental state Priority: Primary Status: Acute Assessment and Plan: 67 year old male presents with chief complaint of altered mental status. Patient is visiting from [place] and receives his medical care there. Patient was eating dinner at the dining table at 10 PM when he had loss of consciousness. According to patient family saw him sitting in the chair staring for at least 30 seconds. Afterwards patient reports he heard some noises and likely regain consciousness. He does not remember any of this. He reports he was dizzy and lightheaded afterwards. He reports he has never had this before. Before the episode he had taken a Kayexalate which was prescribed to him due to hyperkalemia. He denied headache, blurry vision, changes in hearing, difficulty swallowing, tongue biting, loss of bowels, bladder function , numbness. In the ED, he was noted to have a leukocytosis of 21, and an increased anion gap metabolic acidosis and was admitted for further management. On the floor he was assessed with acute metabolic encephalopathy likely secondary to seizure vs syncopal episode vs infection. CT head came back negative for any acute intracranial pathology. He was seen by cardiology and neurology as well for possible seizures vs cardiogenic syncope. He had a 2D echo done which came back WNL and cardiology recommended no further intervention. Neurology also recommended an outpatient EEG. He was started on broad spectrum antibiotics with zosyn and his WBC trended down. He was also noted to have an SALMA which improved with IV fluids. He was discharged in a stable condition. Qualifiers: Altered mental status type: disorientation Qualified Code(s): R41.0 - Disorientation, unspecified (2) History of hyperlipidemia Priority: Secondary Status: Chronic (3) Prostate cancer Priority: Secondary Status: Chronic (4) Hx of essential hypertension Priority: Secondary Status: Acute (5) DVT prophylaxis Priority: Secondary Status: Acute Hospital course: Mr. Desai is a 67 year old male - Time Spent with Patient Total time spent providing and/or coordinating discharge services: - Discharge Medications Home Medications: Atorvastatin [Lipitor] 40 mg PO HS 10/12/17 [History] Lisinopril [Zestril] 40 mg PO DAILY 10/12/17 [History] Metformin HCl [Glucophage] 1,000 mg PO BIDWM 10/12/17 [History] Naproxen [Naproxen] 500 mg PO BID PRN 10/12/17 [History] Allergies/Adverse Reactions: 3 Allergy/AdvReac Type Severity Reaction Status Date / Time No Known Allergies Allergy Verified 10/12/17 11:33 Date of admission: 10/12/17 11:57 Primary care physician: PCP NONE - Constitutional Vitals: Temp Pulse Resp BP Pulse Ox 98.2 F 67 16 120/75 98 10/13/17 06:50 10/13/17 06:50 10/13/17 06:50 10/13/17 06:50 10/13/17 06:50 Exam: General: Pleasant, anxious male HEENT: Head atraumatic, normocephalic, EOMI, PERRL, neck nontender to palpation , absent lymphadenopathy, Moist Mucous Membranes, no evidence of tongue biting Heart: Regular rate and rhythm with no murmur Lungs: Clear to auscultation bilaterally Abdomen: Soft nontender, nondistended positive bowel sounds Skin: warm and dry, absent rash Extremities: Absent pedal edema, Neuro: Cranial nerves II through XII intact, UE and LE sensation equal bilaterally, UE and LEstrength 5/5, alert oriented 3, Heel to mathur intact, finger to nose intact, Gait intact, - Head Head exam: Present: atraumatic, normocephalic - Eye Eye exam: Present: PERRL, conjuntiva pink, sclera anicteric Pupils: Present: PERRL - Neck Neck exam general surgery: Present: supple, trachea midline. Absent: lymphadenopathy - Respiratory Respiratory exam: Present: CTAB. Absent: accessory muscle use, rales, rhonchi, wheezes - Cardiovascular Cardiovascular exam: Present: RRR, +S1, +S2. Absent: diastolic murmur, gallop, rubs, systolic murmur - GI/Abdominal GI/Abdominal exam: Present: normal bowel sounds, soft, no peritoneal signs. Absent: distended, tenderness - Extremities Exam Extremities exam: Present: warm, radial pulses palpable and symmetrical. Absent : calf tenderness, cyanotic, pedal edema - Neurological Exam Neurological exam: Present: CN II-XII intact, oriented X3, no focal deficits. Absent: pronater drift, facial droop, speech deficit - Skin Skin exam: Present: dry, intact - Patient Status Disposition: Home, Self-Care Condition: Good - Discharge Instructions Instructions: Syncope (DC) Follow Up With: NONE,PCP [Primary Care Provider] - Additional Instructions: Please follow up with your primary care physician within 7-10 days.
--- NOTE | 2017-10-15 21:22 | Electrocardiograph Report ---
[address] [address] Test Date: 2017-10-11 Pat Name: Glenn Desai Department: EXAM2 Room: 3B12 Gender: M Mine Captain: : 1950 Requested By: Cristino Jesus Order Number: [id number] Reading MD: Beverly Christensen Measurements Intervals [place] Rate: 69 P: 75 OR: 165 QRS: 60 QRSD: 85 T: 37 QT: 380 QTc: 408 Interpretive Statements Sinus rhythm Electronically Signed On 10-15-2017 21:20:36 EDT by Beverly Christensen
== END 2017-10-13 11:00 | disposition home or self-care (01) | DRG 71 ==
LOC: 3BNU 22:59 → EMEROOARM 22:59 → 3BNU 10-12 03:11
PROVIDERS: ADMIT Internal Medicine; ATTEND Internal Medicine